=== PATIENT | female | born 1990 | race Caucasian/White ===

== ENCOUNTER → 2016-11-21 | Outpatient (CLI) | payer OTHER ==
[~2016-11-21] MED LIST: ATARAX25 MG PO; BACTRIM DS 8001 TA1 PO; BENADRYL25 M2 PO; BIAXIN500 MG PO; CLINDAMYCIN150 MG PO; LOPRESSOR25 MG PO; MEDROL DOSEPAK4 MG PO; METOPROLOL SR25 MG PO; MINOCYCLINE HCL50 MG PO; MOTRIN600 MG PO; MOTRIN800 MG PO; NKHM; ORTHO TRI-CYCLE1 TA1 PO; PEN-V500 MG PO; PERCOCET 325 MG1 TA2 PO; PROPRANOLOL HCL10 MG PO; PROPRANOLOL10 MG PO; TENORMIN25 MG PO; VISTARIL25 M1 PO; ZOFRAN4 MG PO
== END | disposition home or self-care (01) ==
LOC: US 09:30
DX: Z01.419 Encounter for gynecological examination (general) (routine) without abnormal findings (principal); N63 Unspecified lump in breast

== ENCOUNTER 2019-11-13 02:49 | Emergency (ER) | payer BC ==
[~2019-11-13] VITALS: Wt 81.6 kg
== END 2019-11-13 04:08 ==
LOC: ED 02:49
DX: S60.454A Superficial foreign body of right ring finger, initial encounter (principal); Z88.0 Allergy status to penicillin; Z79.899 Other long term (current) drug therapy; W49.04XA Ring or other jewelry causing external constriction, initial encounter; Y93.89 Activity, other specified; Y92.89 Other specified places as the place of occurrence of the external cause; Y99.8 Other external cause status

== ENCOUNTER → 2020-06-27 | Outpatient (CLI) | payer SELFPAY | END | disposition home or self-care (01) | LOC: COVID19 15:50 | PROVIDERS: ATTEND Student in an Organized Health Care Education/Training Program | DX: Z11.52 Encounter for screening for COVID-19 (principal) ==

== ENCOUNTER → 2023-10-22 | Outpatient (CLI) | payer BC ==
[~2023-10-22] MED LIST changes: +GADOTERATE MEGLUMINE 10 MMOL/20 ML VIAL IV ONE; +SODIUM CHLORIDE 0.9% 50 ML IV ONE
== END | disposition home or self-care (01) ==
LOC: MRI 10:00
PROVIDERS: ATTEND Nurse Practitioner
DX: E22.9 Hyperfunction of pituitary gland, unspecified (principal)